=== PATIENT | female | born 1960 | race Caucasian/White ===

== ENCOUNTER 2018-08-23 03:21 | Emergency (ER) | payer MEDICARE, MEDICAID ==
[2018-08-23] MEDS: NA BICARBONATE 8.4% 50 ML SYG IV (03:38)
[2018-08-23] MEDS: SOD CHLORIDE 0.9% 1,000 ML IV (03:38)
[2018-08-23 03:39] LABS: ADD MAN DIFF? NO
[2018-08-23 03:56] LABS: BASOPHIL # 0.1 10^3/ul (0.0-0.1); BASOPHILS % 1.6 % (0.0-2.0); EOSINOPHILS # 0.1 10^3/ul (0.0-0.5); EOSINOPHILS % 1.8 % (0.0-7.0); HEMOGLOBIN 14.3 g/dl (12.0-16.0); LYMPHOCYTES # 1.1 10^3/ul (0.8-2.9); LYMPHOCYTES % 22.8 % (15.0-51.0); MEAN CORPUSCULAR HEMOGLOBIN 27.2 pg (29.0-33.0); MEAN CORPUSCULAR HGB CONC 31.1 g/dl (32.0-37.0); MEAN CORPUSCULAR VOLUME 87.5 fl (82.0-101.0); MEAN PLATELET VOLUME 10.1 fl (7.4-10.4); MONOCYTE # 0.3 10^3/ul (0.3-0.9); MONOCYTES % 6.1 % (0.0-11.0); NEUTROPHIL # 3.3 10^3/ul (1.6-7.5); NEUTROPHILS % 67.1 % (39.0-77.0); PLATELET COUNT 246 10^3/UL (140-415); RED BLOOD COUNT 5.26 10^6/ul (4.20-5.40); RED CELL DISTRIBUTION WIDTH 15.9 % (11.5-14.5)
[2018-08-23 04:02] LABS: ALANINE AMINOTRANSFERASE 15 IU/L (13-69); ALBUMIN 4.9 g/dl (3.3-4.9); ALBUMIN/GLOBULIN RATIO 1.22; ALKALINE PHOSPHATASE 89 IU/L (42-121); ANION GAP 14 (5-13); ASPARTATE AMINO TRANSFERASE 33 IU/L (15-46); BILIRUBIN,INDIRECT 0.3 mg/dl (0-1.1); BILIRUBIN,TOTAL 0.3 mg/dl (0.2-1.3); BLOOD UREA NITROGEN 13 mg/dl (7-20); CALCIUM 10.8 mg/dl (8.4-10.2); CARBON DIOXIDE 22 mmol/L (21-31); CHLORIDE 106 mmol/L (97-110); CREATININE 1.08 mg/dl (0.44-1.00); Estimated GFR 52 mL/min (>60); GLUCOSE 133 mg/dl (70-220); POTASSIUM 3.8 mmol/L (3.5-5.1); SODIUM 142 mmol/L (135-144); TOTAL PROTEIN 8.9 g/dl (6.1-8.1)
[2018-08-23 04:03] LABS: ACETAMINOPHEN < 10.0 ug/ml (10.0-30.0); ETHANOL < 10.0 mg/dl (0-0); SALICYLATE < 1.0 mg/dl (5.0-30.0)
[2018-08-23 04:19] LABS: ADD UMIC YES; UR ASCORBIC ACID NEGATIVE (NEGATIVE); UR BACTERIA MANY /HPF (NONE SEEN); UR BILIRUBIN (Dip) NEGATIVE (NEGATIVE); UR BLOOD (Dip) NEGATIVE (NEGATIVE); UR CLARITY CLOUDY (CLEAR); UR COLOR AMBER (YELLOW); UR GLUCOSE (Dip) NEGATIVE (NEGATIVE); UR KETONES (Dip) NEGATIVE (NEGATIVE); UR LEUKOCYTE ESTERASE (Dip) 2+ Leu/ul (NEGATIVE); UR MUCUS MANY /HPF (NONE SEEN); UR NITRITE (Dip) POSITIVE (NEGATIVE); UR RBC 2 /HPF (0-5); UR SPECIFIC GRAVITY (Dip) 1.027 (1.003-1.030); UR TOTAL PROTEIN (Dip) 2+ mg/dl (NEGATIVE); UR UROBILINOGEN (Dip) NEGATIVE (NEGATIVE); UR WBC 91 /HPF (0-5)
[2018-08-23 04:26] LABS: AMPHETAMINE/METHAMPHETAMINE Negative (NEGATIVE); BARBITURATES Negative (NEGATIVE)
[2018-08-23 05:01] LABS: BENZODIAZEPINES POSITIVE (NEGATIVE); CANNABINOIDS NEGATIVE (NEGATIVE); COCAINE NEGATIVE (NEGATIVE); OPIATES NEGATIVE (NEGATIVE)
== END 2018-08-23 11:39 | disposition home or self-care (01) ==
LOC: E/R 03:21
DX: T45.0X1A Poisoning by antiallergic and antiemetic drugs, accidental (unintentional), initial encounter (principal); I10 Essential (primary) hypertension
CPT/HCPCS: 36415; 80053; 80307; 81001; 85025; 93005; 99284-25

== ENCOUNTER 2018-10-13 05:56 | Observation (INO) | payer MEDICARE, OTHER, MEDICAID ==
[2018-10-13] MEDS: DICYCLOMINE 20 MG INJ IM ×2 (07:30→08:00)
[2018-10-13 08:38] LABS: ADD MAN DIFF? NO
[2018-10-13 08:54] LABS: BASOPHIL # 0.1 10^3/ul (0.0-0.1); BASOPHILS % 0.8 % (0.0-2.0); EOSINOPHILS # 0.1 10^3/ul (0.0-0.5); EOSINOPHILS % 1.1 % (0.0-7.0); HEMATOCRIT 43.4 % (37.0-47.0); LYMPHOCYTES # 1.1 10^3/ul (0.8-2.9); LYMPHOCYTES % 14.8 % (15.0-51.0); MEAN CORPUSCULAR HEMOGLOBIN 27.2 pg (29.0-33.0); MEAN CORPUSCULAR VOLUME 90.8 fl (82.0-101.0); MEAN PLATELET VOLUME 8.8 fl (7.4-10.4); MONOCYTE # 0.5 10^3/ul (0.3-0.9); MONOCYTES % 6.4 % (0.0-11.0); NEUTROPHIL # 5.6 10^3/ul (1.6-7.5); NEUTROPHILS % 76.4 % (39.0-77.0); PLATELET COUNT 197 10^3/UL (140-415); RED BLOOD COUNT 4.78 10^6/ul (4.20-5.40); RED CELL DISTRIBUTION WIDTH 16.8 % (11.5-14.5)
[2018-10-13 08:54] LABS: WHITE BLOOD COUNT 7.4 10^3/ul (4.8-10.8)
[2018-10-13 09:14] LABS: ALANINE AMINOTRANSFERASE 19 IU/L (13-69); ALBUMIN 3.8 g/dl (3.3-4.9); ALBUMIN/GLOBULIN RATIO 1.08; ALKALINE PHOSPHATASE 56 IU/L (42-121); ANION GAP 9 (5-13); ASPARTATE AMINO TRANSFERASE 36 IU/L (15-46); BILIRUBIN,INDIRECT 0.8 mg/dl (0-1.1); BILIRUBIN,TOTAL 0.8 mg/dl (0.2-1.3); BLOOD UREA NITROGEN 11 mg/dl (7-20); CALCIUM 9.7 mg/dl (8.4-10.2); CARBON DIOXIDE 29 mmol/L (21-31); CHLORIDE 108 mmol/L (97-110); CREATININE 0.82 mg/dl (0.44-1.00); Estimated GFR > 60 mL/min (>60); GLUCOSE 106 mg/dl (70-220); LIPASE 38 U/L (23-300); POTASSIUM 3.8 mmol/L (3.5-5.1); SODIUM 146 mmol/L (135-144); TOTAL PROTEIN 7.3 g/dl (6.1-8.1)
[2018-10-13] MEDS ORDERED: ACETAMINOPHEN 325 MG TAB PO ×2 (10:00→14:30)
[2018-10-13] MEDS: LORAZEPAM 2 MG INJ IV (10:55)
[2018-10-13] MEDS: morphine 4 MG/ML VIAL IV (11:53)
[2018-10-13] MEDS: ONDANSETRON 4 MG INJ IV (11:54)
[2018-10-13] MEDS ORDERED: ALBUTEROL/IPRATROPIUM (NEB) 3 ML AMP HHN (14:30)
[2018-10-13] MEDS ORDERED: ONDANSETRON 4 MG INJ IV (14:30)
[2018-10-13] MEDS ORDERED: NON-FORMULARY/PATIENT OWN MED (Fexofenadine Hcl* (Allegra*) 180 MG) PO (14:30)
[2018-10-13] MEDS ORDERED: NACL 0.9% 3 ML SYG IV (14:30)
[2018-10-13] MEDS ORDERED: DOCUSATE SODIUM 100 MG CAP PO (14:30)
[2018-10-13] MEDS: morphine 2 MG INJ IV ×2 (15:00→20:30)
[2018-10-13] MEDS: DIAZEPAM 5 MG TAB PO ×2 (15:18→22:34)
[2018-10-13] MEDS ORDERED: BISACODYL (EC) 5 MG TAB PO (16:00)
[2018-10-13] MEDS: POTASSIUM CHLORIDE 30 MEQ in SOD CHLORIDE 0.45% 1,000 ML IV ×2 (16:00→22:29)
[2018-10-13] MEDS: ZOLPIDEM 5 MG TAB PO (20:30)
[2018-10-13] MEDS: DOCUSATE SODIUM 100 MG CAP PO (20:31)
[2018-10-13] MEDS: SENNA TAB PO (20:31)
[2018-10-13] MEDS: traZODone 100 MG TAB PO (20:32)
[2018-10-13] MEDS ORDERED: PATIENT'S OWN MEDICATION PO (21:00)
[2018-10-14] MEDS: morphine 2 MG INJ IV ×5 (01:56→20:03)
[2018-10-14] MEDS: hydrALAzine 20 MG INJ IV ×2 (01:56→08:21)
[2018-10-14] MEDS: POTASSIUM CHLORIDE 30 MEQ in SOD CHLORIDE 0.45% 1,000 ML IV ×2 (04:42→17:24)
[2018-10-14 06:02] LABS: ADD MAN DIFF? NO
[2018-10-14 06:05] LABS: WHITE BLOOD COUNT 5.9 10^3/ul (4.8-10.8)
[2018-10-14 06:05] LABS: BASOPHIL # 0.1 10^3/ul (0.0-0.1); BASOPHILS % 1.4 % (0.0-2.0); EOSINOPHILS # 0.2 10^3/ul (0.0-0.5); EOSINOPHILS % 2.5 % (0.0-7.0); HEMATOCRIT 38.7 % (37.0-47.0); HEMOGLOBIN 11.6 g/dl (12.0-16.0); LYMPHOCYTES # 1.6 10^3/ul (0.8-2.9); LYMPHOCYTES % 26.6 % (15.0-51.0); MEAN CORPUSCULAR HEMOGLOBIN 27.8 pg (29.0-33.0); MEAN CORPUSCULAR VOLUME 92.6 fl (82.0-101.0); MEAN PLATELET VOLUME 8.8 fl (7.4-10.4); MONOCYTE # 0.5 10^3/ul (0.3-0.9); MONOCYTES % 8.1 % (0.0-11.0); NEUTROPHIL # 3.6 10^3/ul (1.6-7.5); NEUTROPHILS % 61.1 % (39.0-77.0); PLATELET COUNT 176 10^3/UL (140-415); RED BLOOD COUNT 4.18 10^6/ul (4.20-5.40)
[2018-10-14 06:43] LABS: ANION GAP 8 (5-13); BLOOD UREA NITROGEN 10 mg/dl (7-20); CARBON DIOXIDE 31 mmol/L (21-31); CHLORIDE 105 mmol/L (97-110); CREATININE 0.85 mg/dl (0.44-1.00); Estimated GFR > 60 mL/min (>60); GLUCOSE 92 mg/dl (70-220); MAGNESIUM 1.9 mg/dl (1.7-2.5); PHOSPHORUS 4.5 mg/dl (2.5-4.9); POTASSIUM 4.1 mmol/L (3.5-5.1); SODIUM 144 mmol/L (135-144)
[2018-10-14 06:59] LABS: HEMOGLOBIN A1C 4.9 % (0-5.9)
[2018-10-14] MEDS: DOCUSATE SODIUM 100 MG CAP PO ×2 (07:51→20:08)
[2018-10-14] MEDS: SENNA TAB PO ×2 (07:51→20:08)
[2018-10-14] MEDS: LORATADINE 10 MG TAB PO (08:21)
[2018-10-14] MEDS: ENOXAPARIN 40 MG/0.4 ML SYG SC (08:22)
[2018-10-14] MEDS: DIAZEPAM 5 MG TAB PO ×2 (13:02→21:07)
[2018-10-14] MEDS: NA PHOSPHATE/BIPHOS 133 ML ENEMA PR (14:15)
[2018-10-14] MEDS: IBUPROFEN 600 MG TAB PO (22:32)
[2018-10-14] MEDS: traZODone 100 MG TAB PO (22:40)
[2018-10-15] MEDS: hydrALAzine 20 MG INJ IV ×2 (03:00→09:55)
[2018-10-15] MEDS: morphine 2 MG INJ IV ×2 (03:00→07:02)
[2018-10-15] MEDS: AMLODIPINE 10 MG TAB PO (05:25)
[2018-10-15] MEDS: POTASSIUM CHLORIDE 30 MEQ in SOD CHLORIDE 0.45% 1,000 ML IV (06:06)
[2018-10-15] MEDS: DIAZEPAM 5 MG TAB PO (07:39)
[2018-10-15] MEDS: ENOXAPARIN 40 MG/0.4 ML SYG SC (08:29)
[2018-10-15] MEDS: SENNA TAB PO (08:29)
[2018-10-15] MEDS: LORATADINE 10 MG TAB PO (08:29)
[2018-10-15] MEDS: DOCUSATE SODIUM 100 MG CAP PO (08:29)
[2018-10-15] MEDS: LOPERAMIDE 2 MG CAP PO (08:50)
[2018-10-15] MEDS: HYDROCODONE/APAP (5/325) TAB PO (08:51)
[2018-10-16] MEDS ORDERED: AMLODIPINE 10 MG TAB PO (09:00)
== END 2018-10-15 13:30 | disposition home or self-care (01) ==
LOC: E/R 05:56 → 5EC 09:42
DX: E86.0 Dehydration (principal); F32.9 Major depressive disorder, single episode, unspecified; J44.9 Chronic obstructive pulmonary disease, unspecified
CPT/HCPCS: 74176; 80048; 80053; 83036; 83690; 83735; 84100; 85025; 87045; 90686; 93005; 99217; 99285-25

== ENCOUNTER → 2018-10-26 | Emergency (ER) | payer MEDICARE, OTHER | END | disposition home or self-care (01) | LOC: E/R 14:31 | DX: F41.9 Anxiety disorder, unspecified (principal) | CPT/HCPCS: 99283 ==

== ENCOUNTER 2018-10-30 10:48 | Inpatient (IN) | payer MEDICARE, OTHER ==
[2018-10-30] MEDS: LOPERAMIDE 2 MG CAP PO ×2 (11:52→17:21)
[2018-10-30 13:17] LABS: ADD MAN DIFF? NO
[2018-10-30 13:20] LABS: ABNORMAL IP MESSAGE 1; BASOPHIL # 0.1 10^3/ul (0.0-0.1); BASOPHILS % 0.7 % (0.0-2.0); EOSINOPHILS % 0.4 % (0.0-7.0); HEMATOCRIT 45.2 % (37.0-47.0); HEMOGLOBIN 13.8 g/dl (12.0-16.0); LYMPHOCYTES # 0.5 10^3/ul (0.8-2.9); MEAN CORPUSCULAR HEMOGLOBIN 26.7 pg (29.0-33.0); MEAN CORPUSCULAR HGB CONC 30.5 g/dl (32.0-37.0); MEAN CORPUSCULAR VOLUME 87.6 fl (82.0-101.0); MEAN PLATELET VOLUME 8.4 fl (7.4-10.4); MONOCYTE # 0.7 10^3/ul (0.3-0.9); MONOCYTES % 10.2 % (0.0-11.0); NEUTROPHIL # 5.6 10^3/ul (1.6-7.5); NEUTROPHILS % 81.1 % (39.0-77.0); NUCLEATED RED BLOOD CELLS% 0.4 /100WBC (0.0-0.0); PLATELET COUNT 201 10^3/UL (140-415); RED BLOOD COUNT 5.16 10^6/ul (4.20-5.40); RED CELL DISTRIBUTION WIDTH 16.1 % (11.5-14.5)
[2018-10-30 13:20] LABS: WHITE BLOOD COUNT 6.9 10^3/ul (4.8-10.8)
[2018-10-30 13:21] LABS: POSITIVE DIFF @See below
[2018-10-30 13:43] LABS: ALANINE AMINOTRANSFERASE 12 IU/L (13-69); ALBUMIN 4.1 g/dl (3.3-4.9); ALBUMIN/GLOBULIN RATIO 1.07; ALKALINE PHOSPHATASE 364 IU/L (42-121); ANION GAP 17 (5-13); ASPARTATE AMINO TRANSFERASE 25 IU/L (15-46); BILIRUBIN,INDIRECT 1.4 mg/dl (0-1.1); BILIRUBIN,TOTAL 1.5 mg/dl (0.2-1.3); BLOOD UREA NITROGEN 15 mg/dl (7-20); CALCIUM 10.5 mg/dl (8.4-10.2); CARBON DIOXIDE 21 mmol/L (21-31); CHLORIDE 101 mmol/L (97-110); CREATININE 1.33 mg/dl (0.44-1.00); Estimated GFR 41 mL/min (>60); GLUCOSE 128 mg/dl (70-220); LIPASE 32 U/L (23-300); POTASSIUM 3.7 mmol/L (3.5-5.1); SODIUM 139 mmol/L (135-144); TOTAL PROTEIN 7.9 g/dl (6.1-8.1)
[2018-10-30] MEDS ORDERED: ACETAMINOPHEN 650 MG SUPP PR (16:30)
[2018-10-30] MEDS ORDERED: ACETAMINOPHEN 325 MG TAB PO (16:30)
[2018-10-30] MEDS ORDERED: NACL 0.9% 3 ML SYG IV (16:30)
[2018-10-30] MEDS: ONDANSETRON 4 MG INJ IV (17:20)
[2018-10-30] MEDS: morphine 2 MG INJ IV ×2 (17:20→23:04)
[2018-10-30] MEDS: SOD CHLORIDE 0.9% 1,000 ML IV (17:49)
[2018-10-30] MEDS: KETOROLAC 30 MG INJ IV (17:52)
[2018-10-31] MEDS: KETOROLAC 30 MG INJ IV ×4 (00:32→18:00)
[2018-10-31] MEDS: ONDANSETRON 4 MG INJ IV ×4 (00:45→23:43)
[2018-10-31] MEDS: LORAZEPAM 2 MG INJ IV (01:50)
[2018-10-31] MEDS: SOD CHLORIDE 0.9% 1,000 ML IV ×4 (02:29→22:29)
[2018-10-31] MEDS: morphine 2 MG INJ IV ×3 (03:42→23:43)
[2018-10-31 06:01] LABS: ABNORMAL IP MESSAGE 1; HEMATOCRIT 38.5 % (37.0-47.0); MEAN CORPUSCULAR HEMOGLOBIN 27.1 pg (29.0-33.0); MEAN CORPUSCULAR HGB CONC 31.2 g/dl (32.0-37.0); MEAN CORPUSCULAR VOLUME 86.9 fl (82.0-101.0); MEAN PLATELET VOLUME 9.4 fl (7.4-10.4); NUCLEATED RED BLOOD CELLS% 0.3 /100WBC (0.0-0.0); PLATELET COUNT 133 10^3/UL (140-415); RED BLOOD COUNT 4.43 10^6/ul (4.20-5.40); RED CELL DISTRIBUTION WIDTH 16.4 % (11.5-14.5)
[2018-10-31 06:01] LABS: WHITE BLOOD COUNT 5.9 10^3/ul (4.8-10.8)
[2018-10-31 06:02] LABS: POSITIVE DIFF @See below
[2018-10-31 06:03] LABS: ADD MAN DIFF? YES
[2018-10-31 06:11] LABS: HEMOGLOBIN A1C 4.9 % (0-5.9)
[2018-10-31 06:30] LABS: ALANINE AMINOTRANSFERASE 18 IU/L (13-69); ALBUMIN 2.9 g/dl (3.3-4.9); ALBUMIN/GLOBULIN RATIO 0.96; ALKALINE PHOSPHATASE 310 IU/L (42-121); ANION GAP 12 (5-13); ASPARTATE AMINO TRANSFERASE 19 IU/L (15-46); BILIRUBIN,INDIRECT 0.7 mg/dl (0-1.1); BILIRUBIN,TOTAL 0.7 mg/dl (0.2-1.3); BLOOD UREA NITROGEN 25 mg/dl (7-20); CALCIUM 9.1 mg/dl (8.4-10.2); CARBON DIOXIDE 23 mmol/L (21-31); CHLORIDE 103 mmol/L (97-110); CREATININE 1.37 mg/dl (0.44-1.00); Estimated GFR 40 mL/min (>60); GLUCOSE 116 mg/dl (70-220); PHOSPHORUS 4.1 mg/dl (2.5-4.9); SODIUM 138 mmol/L (135-144); TOTAL PROTEIN 5.9 g/dl (6.1-8.1)
[2018-10-31 07:03] LABS: ANISOCYTOSIS 1+ (0-0); BAND NEUTROPHILS #M 1.5 10^3/ul (0.0-0.6); BAND NEUTROPHILS % (M) 26 % (0-4); BURR CELLS 1+ (0-0); EOSINOPHILS % (M) 1 % (0-7); ERYTHROBLAST% (NRBC) (M) 1 % (0-0); HYPOCHROMASIA 1+ (0-0); LYMPHOCYTES #M 0.5 10^3/ul (0.8-2.9); LYMPHOCYTES % (M) 9 % (15-51); METAMYELOCYTES #M 0.1 10^3/ul (0.0-0.0); METAMYELOCYTES %M 3 % (0-0); MICROCYTOSIS 1+ (0-0); MONOCYTE #M 0.3 10^3/ul (0.3-0.9); MONOCYTES % (M) 6 % (0-11); PLATELET ESTIMATE DECREASED; POIKILOCYTOSIS 1+ (0-0); REACTIVE LYMPHOCYTES% (M) 1 % (0-0); SEG NEUT #M 3.3 10^3/ul (1.6-7.5); SEGMENTED NEUTROPHILS (M) % 55 % (39-77); SMUDGE%M 1 % (0-0)
[2018-10-31] MEDS: ENOXAPARIN 40 MG/0.4 ML SYG SC (09:04)
[2018-10-31] MEDS: LEVOFLOXACIN 500MG/D5W (PMX) 100 ML IVPB (15:12)
[2018-10-31] MEDS: metroNIDAZOLE 500 MG/NS (PMX) 100 ML IVPB ×2 (22:00→23:43)
[2018-10-31 23:40] LABS: C-REACTIVE PROTEIN 25.4 mg/dl (0.0-0.9)
[2018-11-01 00:13] LABS: ERYTHROCYTE SEDIMENTATION RATE 15 mm/Hr (0-30)
[2018-11-01] MEDS: ONDANSETRON 4 MG INJ IV ×4 (04:18→20:45)
[2018-11-01] MEDS: morphine 2 MG INJ IV ×3 (04:20→22:31)
[2018-11-01] MEDS: metroNIDAZOLE 500 MG/NS (PMX) 100 ML IVPB ×3 (06:25→22:20)
[2018-11-01] MEDS: ENOXAPARIN 40 MG/0.4 ML SYG SC (09:08)
[2018-11-01] MEDS: SOD CHLORIDE 0.9% 1,000 ML IV ×2 (10:19→18:29)
[2018-11-01] MEDS: LEVOFLOXACIN 500MG/D5W (PMX) 100 ML IVPB (15:40)
[2018-11-01] MEDS ORDERED: clonAZEPAM 0.5 MG TAB PO (17:30)
[2018-11-01] MEDS: MAGNESIUM CITRATE 300 ML BTL PO ×2 (17:30→19:34)
[2018-11-01] MEDS: BISACODYL (EC) 5 MG TAB PO (17:34)
[2018-11-01] MEDS: METOCLOPRAMIDE 10 MG INJ IV (17:34)
[2018-11-01] MEDS: POLYETHYLENE GLYCOL 3350 119 GM POWDER PO (23:30)
[2018-11-02] MEDS: METOCLOPRAMIDE 10 MG INJ IV ×4 (00:32→18:03)
[2018-11-02] MEDS: SOD CHLORIDE 0.9% 1,000 ML IV ×3 (02:05→17:06)
[2018-11-02] MEDS: ONDANSETRON 4 MG INJ IV ×2 (04:33→09:33)
[2018-11-02] MEDS: morphine 2 MG INJ IV ×3 (04:44→22:43)
[2018-11-02] MEDS: metroNIDAZOLE 500 MG/NS (PMX) 100 ML IVPB ×3 (05:30→21:54)
[2018-11-02] MEDS: CALCIUM CARBONATE 500 MG CHEW TAB PO (05:31)
[2018-11-02] MEDS: POLYETHYLENE GLYCOL 3350 119 GM POWDER PO (06:00)
[2018-11-02] MEDS: BISACODYL (EC) 5 MG TAB PO (08:00)
[2018-11-02] MEDS: ENOXAPARIN 40 MG/0.4 ML SYG SC (09:00)
[2018-11-02 10:43] LABS: WHITE BLOOD COUNT 10.6 10^3/ul (4.8-10.8)
[2018-11-02 10:43] LABS: ABNORMAL IP MESSAGE 1; HEMOGLOBIN 11.6 g/dl (12.0-16.0); MEAN CORPUSCULAR HEMOGLOBIN 26.8 pg (29.0-33.0); MEAN CORPUSCULAR VOLUME 92.4 fl (82.0-101.0); MEAN PLATELET VOLUME 9.2 fl (7.4-10.4); NUCLEATED RED BLOOD CELLS% 0.7 /100WBC (0.0-0.0); PLATELET COUNT 136 10^3/UL (140-415); RED BLOOD COUNT 4.33 10^6/ul (4.20-5.40); RED CELL DISTRIBUTION WIDTH 17.1 % (11.5-14.5)
[2018-11-02 10:44] LABS: ADD MAN DIFF? YES; POSITIVE DIFF @See below
[2018-11-02 11:02] LABS: INR 2.33; PROTIME 25.6 Sec (11.9-14.9)
[2018-11-02 11:05] LABS: ALANINE AMINOTRANSFERASE 12 IU/L (13-69); ALBUMIN 2.8 g/dl (3.3-4.9); ALBUMIN/GLOBULIN RATIO 1.03; ALKALINE PHOSPHATASE 244 IU/L (42-121); ANION GAP 23 (5-13); ASPARTATE AMINO TRANSFERASE 34 IU/L (15-46); BILIRUBIN,INDIRECT 0.2 mg/dl (0-1.1); BILIRUBIN,TOTAL 0.6 mg/dl (0.2-1.3); BLOOD UREA NITROGEN 29 mg/dl (7-20); CALCIUM 8.3 mg/dl (8.4-10.2); CHLORIDE 97 mmol/L (97-110); CREATININE 1.71 mg/dl (0.44-1.00); Estimated GFR 31 mL/min (>60); MAGNESIUM 2.3 mg/dl (1.7-2.5); PHOSPHORUS 6.1 mg/dl (2.5-4.9); POTASSIUM 4.4 mmol/L (3.5-5.1); SODIUM 129 mmol/L (135-144); TOTAL PROTEIN 5.5 g/dl (6.1-8.1)
[2018-11-02 11:36] LABS: CARBON DIOXIDE 9 mmol/L (21-31); GLUCOSE 27 mg/dl (70-220)
[2018-11-02] MEDS ORDERED: DEXTROSE 50% 50 ML SYRINGE (11:45)
[2018-11-02] MEDS: DEXTROSE 50% 50 ML SYRINGE IV ×3 (11:57→22:43)
[2018-11-02] MEDS: DEXTROSE 5%-0.45% NACL 1,000 ML IV (11:57)
[2018-11-02 12:21] LABS: AADO2 Arterial 57.8 mmHg (7.0-24.0); Arterial Base Excess -18.7 mmol/L (-3.0-3); Arterial Blood Gas Oxygen Sat 98.7 mmHG (95.0-98.0); Arterial COHb 0.3 % (0.0-3.0); Arterial Fraction of Oxyhgb 97.9 % (93.0-99.0); Arterial MetHb 0.5 % (0.0-1.5); Arterial pCO2 27.4 mmhg (35-45); MODE NASAL CANNULA; Site Right Brachial
[2018-11-02 12:56] LABS: GLUCOSE 67 mg/dl (70-220)
[2018-11-02] MEDS: NA BICARBONATE 8.4% 50 ML SYG IV (13:09)
[2018-11-02] MEDS: MAGNESIUM CITRATE 300 ML BTL PO (14:30)
[2018-11-02] MEDS: LACTULOSE 30ML CUP GTB ×4 (15:00→21:00)
[2018-11-02] MEDS: LEVOFLOXACIN 500MG/D5W (PMX) 100 ML IVPB (15:39)
[2018-11-02 16:21] LABS: LACTIC ACID 13.2 mmol/L (0.5-2.0)
[2018-11-02] MEDS: SODIUM BICARBONATE (IV ADD) 150 MEQ in DEXTROSE 5% 1,000 ML IV (16:50)
[2018-11-02] MEDS: PHYTONADIONE 10 MG in DEXTROSE 5% 50 ML IVPB (16:50)
[2018-11-02] MEDS ORDERED: SODIUM CHLORIDE 0.9% 1L BAG IV* (17:00)
[2018-11-02] MEDS: ACCU-CHEK XX ×2 (17:00→21:00)
[2018-11-02] MEDS ORDERED: LORAZEPAM 2 MG INJ IV (17:30)
[2018-11-02 19:59] LABS: ADD UMIC YES; UR ASCORBIC ACID NEGATIVE (NEGATIVE); UR BACTERIA MANY /HPF (NONE SEEN); UR BILIRUBIN (Dip) 1+ mg/dL (NEGATIVE); UR BLOOD (Dip) 1+ mg/dL (NEGATIVE); UR CLARITY SLIGHTLY CLOUDY (CLEAR); UR COLOR AMBER (YELLOW); UR GLUCOSE (Dip) NEGATIVE (NEGATIVE); UR KETONES (Dip) NEGATIVE (NEGATIVE); UR LEUKOCYTE ESTERASE (Dip) TRACE Leu/ul (NEGATIVE); UR MUCUS MANY /HPF (NONE SEEN); UR NITRITE (Dip) NEGATIVE (NEGATIVE); UR RBC 7 /HPF (0-5); UR SPECIFIC GRAVITY (Dip) 1.019 (1.003-1.030); UR TOTAL PROTEIN (Dip) 1+ mg/dl (NEGATIVE); UR UROBILINOGEN (Dip) 2+ mg/dL (NEGATIVE); UR WBC 8 /HPF (0-5)
[2018-11-02 20:12] LABS: CREATININE,URINE RANDOM 75.33 mg/dl (20-320)
[2018-11-02 20:19] LABS: SODIUM,URINE RANDOM < 13 mmol/L (30-90)
[2018-11-02 21:33] LABS: LACTIC ACID 12.5 mmol/L (0.5-2.0)
[2018-11-02] MEDS ORDERED: GLUCOSE GEL 15 GRAM TUBE BUCCAL (23:00)
[2018-11-02] MEDS ORDERED: GLUCAGON 1 MG INJ IM (23:00)
[2018-11-02] MEDS ORDERED: GLUCOSE GEL 15 GRAM TUBE PO ×2 (23:00)
[2018-11-03] MEDS: METOCLOPRAMIDE 10 MG INJ IV ×4 (00:13→17:49)
[2018-11-03] MEDS: ACCU-CHEK XX ×6 (01:00→20:58)
[2018-11-03] MEDS: SODIUM BICARBONATE (IV ADD) 150 MEQ in DEXTROSE 5% 1,000 ML IV (03:20)
[2018-11-03] MEDS: DEXTROSE 50% 50 ML SYRINGE IV (04:26)
[2018-11-03] MEDS: SODIUM BICARBONATE IV ×2 (05:40→17:47)
[2018-11-03] MEDS: DEXTROSE 10% IV ×2 (05:40→17:47)
[2018-11-03] MEDS: LEVOFLOXACIN 250 MG TAB PO (05:41)
[2018-11-03 07:24] LABS: WHITE BLOOD COUNT 9.8 10^3/ul (4.8-10.8)
[2018-11-03 07:24] LABS: ABNORMAL IP MESSAGE 1; HEMATOCRIT 38.7 % (37.0-47.0); MEAN CORPUSCULAR HGB CONC 28.4 g/dl (32.0-37.0); MEAN CORPUSCULAR VOLUME 94.9 fl (82.0-101.0); MEAN PLATELET VOLUME 9.6 fl (7.4-10.4); NUCLEATED RED BLOOD CELLS% 0.5 /100WBC (0.0-0.0); PLATELET COUNT 107 10^3/UL (140-415); RED BLOOD COUNT 4.08 10^6/ul (4.20-5.40); RED CELL DISTRIBUTION WIDTH 17.2 % (11.5-14.5)
[2018-11-03 07:35] LABS: ADD MAN DIFF? YES; POSITIVE DIFF @See below
[2018-11-03 07:45] LABS: INR 1.85; PROTIME 21.4 Sec (11.9-14.9); PT RATIO 1.7
[2018-11-03 07:49] LABS: ALANINE AMINOTRANSFERASE 17 IU/L (13-69); ALBUMIN 2.5 g/dl (3.3-4.9); ALBUMIN/GLOBULIN RATIO 0.96; ALKALINE PHOSPHATASE 179 IU/L (42-121); ANION GAP 24 (5-13); ASPARTATE AMINO TRANSFERASE 35 IU/L (15-46); BILIRUBIN,INDIRECT 0.3 mg/dl (0-1.1); BILIRUBIN,TOTAL 0.8 mg/dl (0.2-1.3); BLOOD UREA NITROGEN 29 mg/dl (7-20); CHLORIDE 94 mmol/L (97-110); CREATININE 1.93 mg/dl (0.44-1.00); Estimated GFR 27 mL/min (>60); GLUCOSE 94 mg/dl (70-220); POTASSIUM 4.2 mmol/L (3.5-5.1); SODIUM 126 mmol/L (135-144); TOTAL PROTEIN 5.1 g/dl (6.1-8.1)
[2018-11-03 07:58] LABS: CARBON DIOXIDE 8 mmol/L (21-31)
[2018-11-03 08:18] LABS: LACTIC ACID 14.5 mmol/L (0.5-2.0)
[2018-11-03] MEDS: POLYETHYLENE GLYCOL 3350 119 GM POWDER PO (08:48)
[2018-11-03 08:55] LABS: PHOSPHORUS 4.9 mg/dl (2.5-4.9)
[2018-11-03 08:55] LABS: MAGNESIUM 2.2 mg/dl (1.7-2.5)
[2018-11-03] MEDS: metroNIDAZOLE 500 MG TAB PO ×3 (09:00→20:11)
[2018-11-03] MEDS: SOD CHLORIDE 0.9% 1,000 ML IV (09:10)
[2018-11-03] MEDS: ENOXAPARIN 40 MG/0.4 ML SYG SC (09:17)
[2018-11-03 09:57] LABS: BAND NEUTROPHILS #M 1.9 10^3/ul (0.0-0.6); BAND NEUTROPHILS % (M) 20 % (0-4); BURR CELLS 2+ (0-0); ERYTHROBLAST% (NRBC) (M) 6 % (0-0); LYMPHOCYTES #M 1.4 10^3/ul (0.8-2.9); LYMPHOCYTES % (M) 15 % (15-51); MONOCYTE #M 0.3 10^3/ul (0.3-0.9); MONOCYTES % (M) 4 % (0-11); PLATELET ESTIMATE DECREASED; POIKILOCYTOSIS 1+ (0-0); POLYCHROMASIA 1+ (0-0); SEG NEUT #M 6.2 10^3/ul (1.6-7.5); SEGMENTED NEUTROPHILS (M) % 61 % (39-77); SMUDGE%M 11 % (0-0)
[2018-11-03 10:14] LABS: AADO2 Arterial 14.3 mmHg (7.0-24.0); Arterial Base Excess -18.2 mmol/L (-3.0-3); Arterial Blood Gas Oxygen Sat 96.2 mmHG (95.0-98.0); Arterial COHb 0.3 % (0.0-3.0); Arterial Fraction of Oxyhgb 95.4 % (93.0-99.0); Arterial HCO3 9.6 mmol/L (22.0-26.0); Arterial MetHb 0.5 % (0.0-1.5); Arterial pCO2 29.4 mmhg (35-45); MODE ROOM AIR; Site Right Brachial
[2018-11-03] MEDS ORDERED: NA BICARBONATE 8.4% 50 ML SYG (10:44)
[2018-11-03] MEDS: NA BICARBONATE 8.4% 50 ML SYG IV (10:51)
[2018-11-03 15:45] LABS: ANION GAP 21 (5-13); BLOOD UREA NITROGEN 29 mg/dl (7-20); CALCIUM 8.1 mg/dl (8.4-10.2); CARBON DIOXIDE 11 mmol/L (21-31); CHLORIDE 94 mmol/L (97-110); CREATININE 1.84 mg/dl (0.44-1.00); Estimated GFR 28 mL/min (>60); GLUCOSE 96 mg/dl (70-220); POTASSIUM 4.2 mmol/L (3.5-5.1); SODIUM 126 mmol/L (135-144)
[2018-11-03 15:47] LABS: AMMONIA < 9 umol/l (9-30)
[2018-11-03 16:01] LABS: LACTIC ACID 14.9 mmol/L (0.5-2.0)
[2018-11-03] MEDS: SODIUM CHLORIDE 0.9% 1L BAG IV* (17:07)
[2018-11-03 17:57] LABS: HEPATITIS B SURFACE ANTIGEN NEGATIVE (NEGATIVE)
[2018-11-03 18:14] LABS: HEPATITIS B CORE ANTIBODY REACTIVE (NEGATIVE); HEPATITIS C VIRAL ANTIBODY NEGATIVE (NEGATIVE)
[2018-11-03 18:15] LABS: HEPATITIS B SURFACE ANTIBODY POSITIVE (NEGATIVE)
[2018-11-03 18:19] LABS: ANION GAP 21 (5-13); BLOOD UREA NITROGEN 28 mg/dl (7-20); CARBON DIOXIDE 10 mmol/L (21-31); CHLORIDE 96 mmol/L (97-110); CREATININE 1.91 mg/dl (0.44-1.00); Estimated GFR 27 mL/min (>60); GLUCOSE 88 mg/dl (70-220); POTASSIUM 4.2 mmol/L (3.5-5.1); SODIUM 127 mmol/L (135-144)
[2018-11-03 18:53] LABS: LACTIC ACID 14.9 mmol/L (0.5-2.0)
[2018-11-03] MEDS ORDERED: metroNIDAZOLE 500 MG TAB PO (21:00)
[2018-11-03] MEDS: DIPHENHYDRAMINE 50 MG INJ IV (22:43)
[2018-11-03 23:54] LABS: ANION GAP 21 (5-13); BLOOD UREA NITROGEN 29 mg/dl (7-20); CALCIUM 8.1 mg/dl (8.4-10.2); CHLORIDE 96 mmol/L (97-110); Estimated GFR 26 mL/min (>60); GLUCOSE 88 mg/dl (70-220); POTASSIUM 4.3 mmol/L (3.5-5.1); SODIUM 126 mmol/L (135-144)
[2018-11-03 23:56] LABS: CARBON DIOXIDE 9 mmol/L (21-31)
[2018-11-04] MEDS: METOCLOPRAMIDE 10 MG INJ IV ×5 (00:05→23:30)
[2018-11-04] MEDS: ACCU-CHEK XX ×6 (00:56→20:37)
[2018-11-04] MEDS: LORAZEPAM 2 MG INJ IV ×3 (02:45→11:22)
[2018-11-04] MEDS: DEXTROSE 50% 50 ML SYRINGE IV ×2 (03:25→12:19)
[2018-11-04 05:16] LABS: ABNORMAL IP MESSAGE 1; HEMATOCRIT 36.8 % (37.0-47.0); HEMOGLOBIN 10.8 g/dl (12.0-16.0); MEAN CORPUSCULAR HEMOGLOBIN 27.3 pg (29.0-33.0); MEAN CORPUSCULAR HGB CONC 29.3 g/dl (32.0-37.0); MEAN CORPUSCULAR VOLUME 92.9 fl (82.0-101.0); MEAN PLATELET VOLUME 10.1 fl (7.4-10.4); NUCLEATED RED BLOOD CELLS% 0.3 /100WBC (0.0-0.0); PLATELET COUNT 71 10^3/UL (140-415); RED BLOOD COUNT 3.96 10^6/ul (4.20-5.40); RED CELL DISTRIBUTION WIDTH 17.2 % (11.5-14.5)
[2018-11-04 05:16] LABS: WHITE BLOOD COUNT 6.1 10^3/ul (4.8-10.8)
[2018-11-04 05:17] LABS: ADD MAN DIFF? YES; POSITIVE DIFF @See below
[2018-11-04] MEDS: SODIUM BICARBONATE IV ×3 (05:19→15:20)
[2018-11-04] MEDS: DEXTROSE 10% IV ×3 (05:19→15:20)
[2018-11-04] MEDS: LEVOFLOXACIN 250 MG TAB PO (05:19)
[2018-11-04 05:37] LABS: INR 1.24; PROTIME 15.7 Sec (11.9-14.9); PT RATIO 1.2
[2018-11-04 05:38] LABS: PARTIAL THROMBOPLASTIN TIME 33.1 Sec (23.0-35.0)
[2018-11-04 05:47] LABS: ANION GAP 25 (5-13); BLOOD UREA NITROGEN 28 mg/dl (7-20); CALCIUM 7.5 mg/dl (8.4-10.2); CARBON DIOXIDE 11 mmol/L (21-31); CHLORIDE 93 mmol/L (97-110); CREATININE 2.04 mg/dl (0.44-1.00); Estimated GFR 25 mL/min (>60); GLUCOSE 79 mg/dl (70-220); MAGNESIUM 2.1 mg/dl (1.7-2.5); PHOSPHORUS 3.6 mg/dl (2.5-4.9); SODIUM 129 mmol/L (135-144)
[2018-11-04 07:46] LABS: BAND NEUTROPHILS #M 0.1 10^3/ul (0.0-0.6); BAND NEUTROPHILS % (M) 2 % (0-4); GIANT THROMBO% (M) 1 % (0-0); LYMPHOCYTES #M 0.7 10^3/ul (0.8-2.9); LYMPHOCYTES % (M) 12 % (15-51); METAMYELOCYTES #M 0.1 10^3/ul (0.0-0.0); METAMYELOCYTES %M 2 % (0-0); MONOCYTE #M 0.4 10^3/ul (0.3-0.9); MONOCYTES % (M) 8 % (0-11); PLATELET ESTIMATE DECREASED; SEG NEUT #M 4.6 10^3/ul (1.6-7.5); SEGMENTED NEUTROPHILS (M) % 76 % (39-77); SMUDGE%M 17 % (0-0)
[2018-11-04] MEDS: metroNIDAZOLE 500 MG TAB PO ×3 (08:41→20:37)
[2018-11-04] MEDS: ENOXAPARIN 40 MG/0.4 ML SYG SC (08:42)
[2018-11-04] MEDS: NYSTATIN 30 GM POWDER BTL TOP ×2 (08:51→21:10)
[2018-11-04 09:11] LABS: LACTIC ACID 16.3 mmol/L (0.5-2.0)
[2018-11-04] MEDS ORDERED: LORAZEPAM 2 MG INJ IV (12:30)
[2018-11-04] MEDS: PROPOFOL 20 ML (13:20)
[2018-11-04] MEDS: PHENYLephrine (100 MCG/ML) 10ML SYG (13:20)
[2018-11-04 15:11] LABS: CREATININE, RANDOM URINE 73 mg/dL (20-275); MICROALBUMIN 2.4 mg/dL; MICROALBUMIN/CREATININE RATIO 33 (<30)
[2018-11-04] MEDS: ALBUMIN HUMAN 25% 100 ML IV (18:38)
[2018-11-04] MEDS: NA PHOSPHATE/BIPHOS 133 ML ENEMA PR (21:25)
[2018-11-05] MEDS: DEXTROSE 10% IV ×3 (00:29→17:24)
[2018-11-05] MEDS: SODIUM BICARBONATE IV ×3 (00:29→17:24)
[2018-11-05] MEDS: DEXTROSE 50% 50 ML SYRINGE IV ×6 (00:39→23:29)
[2018-11-05] MEDS: ACCU-CHEK XX ×6 (00:39→20:19)
[2018-11-05] MEDS: ALBUMIN HUMAN 25% 100 ML IV ×2 (02:23→11:25)
[2018-11-05] MEDS: LEVOFLOXACIN 250 MG TAB PO (05:29)
[2018-11-05 05:32] LABS: WHITE BLOOD COUNT 2.5 10^3/ul (4.8-10.8)
[2018-11-05 05:32] LABS: ABNORMAL IP MESSAGE 1; HEMATOCRIT 31.7 % (37.0-47.0); HEMOGLOBIN 8.7 g/dl (12.0-16.0); MEAN CORPUSCULAR HEMOGLOBIN 26.1 pg (29.0-33.0); MEAN CORPUSCULAR HGB CONC 27.4 g/dl (32.0-37.0); MEAN CORPUSCULAR VOLUME 95.2 fl (82.0-101.0); MEAN PLATELET VOLUME 9.9 fl (7.4-10.4); PLATELET COUNT 37 10^3/UL (140-415); RED BLOOD COUNT 3.33 10^6/ul (4.20-5.40); RED CELL DISTRIBUTION WIDTH 17.5 % (11.5-14.5)
[2018-11-05] MEDS: METOCLOPRAMIDE 10 MG INJ IV ×4 (05:32→23:02)
[2018-11-05 05:55] LABS: ANION GAP 31 (5-13); BLOOD UREA NITROGEN 32 mg/dl (7-20); CALCIUM 7.4 mg/dl (8.4-10.2); CARBON DIOXIDE 12 mmol/L (21-31); CHLORIDE 89 mmol/L (97-110); GLUCOSE 56 mg/dl (70-220); MAGNESIUM 2.1 mg/dl (1.7-2.5); PHOSPHORUS 5.1 mg/dl (2.5-4.9); POTASSIUM 4.3 mmol/L (3.5-5.1); SODIUM 132 mmol/L (135-144)
[2018-11-05 05:56] LABS: ALANINE AMINOTRANSFERASE 20 IU/L (13-69); ALBUMIN 2.7 g/dl (3.3-4.9); ALKALINE PHOSPHATASE 85 IU/L (42-121); ASPARTATE AMINO TRANSFERASE 36 IU/L (15-46); BILIRUBIN,INDIRECT 0.3 mg/dl (0-1.1); BILIRUBIN,TOTAL 1.1 mg/dl (0.2-1.3); TOTAL PROTEIN 4.6 g/dl (6.1-8.1)
[2018-11-05 06:01] LABS: Estimated GFR 27 mL/min (>60)
[2018-11-05 06:07] LABS: LACTIC ACID 21.4 mmol/L (0.5-2.0)
[2018-11-05 06:07] LABS: CREATININE 1.89 mg/dl (0.44-1.00)
[2018-11-05 06:15] LABS: ADD MAN DIFF? YES; POSITIVE DIFF @See below
[2018-11-05] MEDS: PANTOPRAZOLE 40 MG INJ IV ×2 (06:25→18:30)
[2018-11-05] MEDS: PIPER-TAZO 2.25 GM (PMX) 50 ML IVPB ×3 (06:26→21:11)
[2018-11-05 07:18] LABS: INR 1.44; PROTIME 17.6 Sec (11.9-14.9); PT RATIO 1.4
[2018-11-05 07:19] LABS: PARTIAL THROMBOPLASTIN TIME 37.4 Sec (23.0-35.0)
[2018-11-05 07:44] LABS: ANISOCYTOSIS 1+ (0-0); BAND NEUTROPHILS #M 0.1 10^3/ul (0.0-0.6); BAND NEUTROPHILS % (M) 7 % (0-4); EOSINOPHILS % (M) 2 % (0-7); GIANT THROMBO% (M) 1 % (0-0); HYPOCHROMASIA 1+ (0-0); LYMPHOCYTES #M 0.7 10^3/ul (0.8-2.9); LYMPHOCYTES % (M) 31 % (15-51); METAMYELOCYTES %M 3 % (0-0); MONOCYTE #M 0.1 10^3/ul (0.3-0.9); MONOCYTES % (M) 5 % (0-11); MYELOCYTES % (M) 1 % (0-0); OVALOCYTES 1+ (0-0); PLATELET ESTIMATE DECREASED; POIKILOCYTOSIS 1+ (0-0); REACTIVE LYMPHOCYTES% (M) 1 % (0-0); SEG NEUT #M 1.3 10^3/ul (1.6-7.5); SEGMENTED NEUTROPHILS (M) % 50 % (39-77); SMUDGE%M 13 % (0-0)
[2018-11-05] MEDS: SOD CHLORIDE 0.9% 1,000 ML IV (08:29)
[2018-11-05] MEDS: SUCRALFATE 1 GM TAB PO ×4 (09:00→20:12)
[2018-11-05] MEDS ORDERED: VANCOMYCIN IV PER PHARMACY XX (09:30)
[2018-11-05] MEDS: LIDOCAINE 1% (MPF) 5 ML VIAL SC (09:30)
[2018-11-05] MEDS: HYDROCORTISONE 100 MG INJ IV (10:07)
[2018-11-05] MEDS: ENOXAPARIN 40 MG/0.4 ML SYG SC (10:07)
[2018-11-05] MEDS: NA PHOSPHATE/BIPHOS 133 ML ENEMA PR ×2 (10:07→20:19)
[2018-11-05] MEDS: NYSTATIN 30 GM POWDER BTL TOP ×2 (10:09→20:19)
[2018-11-05 10:25] LABS: AADO2 Arterial 54.5 mmHg (7.0-24.0); Allen Test ACCEPTAB; Arterial Base Excess -11.9 mmol/L (-3.0-3); Arterial COHb 0.3 % (0.0-3.0); Arterial Fraction of Oxyhgb 94.4 % (93.0-99.0); Arterial HCO3 15.4 mmol/L (22.0-26.0); Arterial MetHb 0.3 % (0.0-1.5); Arterial pCO2 40.5 mmhg (35-45); MODE NASAL CANNULA; Site Right Radial
[2018-11-05] MEDS: NA BICARBONATE 8.4% 50 ML SYG IV ×3 (11:00→21:00)
[2018-11-05 11:37] LABS: PLATELET COUNT 25 10^3/UL (140-415)
[2018-11-05 11:52] LABS: LIPASE 889 U/L (23-300)
[2018-11-05 11:52] LABS: AMYLASE 153 U/L (11-123)
[2018-11-05 11:54] LABS: INR 1.37; PT RATIO 1.3
[2018-11-05 11:55] LABS: PARTIAL THROMBOPLASTIN TIME 32.6 Sec (23.0-35.0)
[2018-11-05 11:57] LABS: D-DIMER 1653.13 ng/ml (<460)
[2018-11-05 12:01] LABS: THROMBIN TIME 16.7 SEC (13.8-19.1)
[2018-11-05 12:08] LABS: FIBRIN SPLIT PRODUCT <10 ug/ml (<10)
[2018-11-05 15:31] LABS: AADO2 Arterial 61.3 mmHg (7.0-24.0); Allen Test ACCEPTAB; Arterial Base Excess -12.1 mmol/L (-3.0-3); Arterial Blood Gas Oxygen Sat 96.1 mmHG (95.0-98.0); Arterial COHb 0.3 % (0.0-3.0); Arterial Fraction of Oxyhgb 95.6 % (93.0-99.0); Arterial HCO3 15.8 mmol/L (22.0-26.0); Arterial MetHb 0.2 % (0.0-1.5); Blood Gas IEPAP 20/8; Blood Gas PS 12; MODE MASK - BIPAP; Site Right Radial
[2018-11-05] MEDS: VANCOMYCIN HCL 2 GM in SOD CHLORIDE 0.9% 500 ML IVPB (15:55)
[2018-11-05] MEDS ORDERED: MIDAZOLAM (DRIP) 50 mg/50 mL 50 ML IV (19:30)
[2018-11-05] MEDS ORDERED: FENTAnyl (DRIP) 1000 mcg/100mL 100 ML IV (19:30)
[2018-11-05 20:25] LABS: AADO2 Arterial 117.9 mmHg (7.0-24.0); Allen Test ACCEPTAB; Arterial Base Excess -10.5 mmol/L (-3.0-3); Arterial Blood Gas Oxygen Sat 98.7 mmHG (95.0-98.0); Arterial COHb 0.3 % (0.0-3.0); Arterial Fraction of Oxyhgb 98.1 % (93.0-99.0); Arterial MetHb 0.3 % (0.0-1.5); Arterial pCO2 37.4 mmhg (35-45); MODE VENT - AC; Site Right Radial
[2018-11-05] MEDS ORDERED: NA BICARBONATE 8.4% 50 ML SYG IV (21:00)
[2018-11-06] MEDS: ACCU-CHEK XX ×11 (00:28→22:00)
[2018-11-06] MEDS: DEXTROSE 10% IV ×3 (02:07→23:29)
[2018-11-06] MEDS: SODIUM BICARBONATE IV ×3 (02:07→23:29)
[2018-11-06] MEDS: NORepinephrine 8MG/250 ML (PMX 250 ML IV ×2 (04:29→09:42)
[2018-11-06] MEDS: DEXTROSE 50% 50 ML SYRINGE IV ×7 (04:39→19:58)
[2018-11-06] MEDS: PANTOPRAZOLE 40 MG INJ IV ×2 (04:59→18:16)
[2018-11-06] MEDS: METOCLOPRAMIDE 10 MG INJ IV ×2 (04:59→12:00)
[2018-11-06] MEDS: PIPER-TAZO 2.25 GM (PMX) 50 ML IVPB ×3 (05:00→22:07)
[2018-11-06 05:12] LABS: ADD MAN DIFF? NO
[2018-11-06 05:20] LABS: WHITE BLOOD COUNT 2.3 10^3/ul (4.8-10.8)
[2018-11-06 05:20] LABS: ABNORMAL IP MESSAGE 1; HEMATOCRIT 27.7 % (37.0-47.0); HEMOGLOBIN 8.1 g/dl (12.0-16.0); MEAN CORPUSCULAR HEMOGLOBIN 26.8 pg (29.0-33.0); MEAN CORPUSCULAR HGB CONC 29.2 g/dl (32.0-37.0); MEAN CORPUSCULAR VOLUME 91.7 fl (82.0-101.0); MEAN PLATELET VOLUME 9.4 fl (7.4-10.4); RED BLOOD COUNT 3.02 10^6/ul (4.20-5.40); RED CELL DISTRIBUTION WIDTH 17.6 % (11.5-14.5)
[2018-11-06 05:42] LABS: ALANINE AMINOTRANSFERASE 30 IU/L (13-69); ALBUMIN 2.3 g/dl (3.3-4.9); ALBUMIN/GLOBULIN RATIO 1.43; ALKALINE PHOSPHATASE 62 IU/L (42-121); AMYLASE 102 U/L (11-123); ANION GAP 37 (5-13); ASPARTATE AMINO TRANSFERASE 61 IU/L (15-46); BILIRUBIN,INDIRECT 0.5 mg/dl (0-1.1); BILIRUBIN,TOTAL 2.1 mg/dl (0.2-1.3); BLOOD UREA NITROGEN 33 mg/dl (7-20); CALCIUM 6.5 mg/dl (8.4-10.2); CARBON DIOXIDE 14 mmol/L (21-31); CHLORIDE 87 mmol/L (97-110); GLUCOSE 99 mg/dl (70-220); LIPASE 898 U/L (23-300); POTASSIUM 3.7 mmol/L (3.5-5.1); SODIUM 138 mmol/L (135-144); TOTAL PROTEIN 3.9 g/dl (6.1-8.1)
[2018-11-06 05:44] LABS: POSITIVE DIFF @See below
[2018-11-06 05:46] LABS: PLATELET COUNT 20 10^3/UL (140-415)
[2018-11-06 05:49] LABS: Estimated GFR 24 mL/min (>60)
[2018-11-06 05:50] LABS: PHOSPHORUS 10.4 mg/dl (2.5-4.9)
[2018-11-06 05:58] LABS: CREATININE 2.15 mg/dl (0.44-1.00)
[2018-11-06 06:19] LABS: LACTIC ACID > 24.0 mmol/L (0.5-2.0)
[2018-11-06] MEDS ORDERED: DEXTROSE 5%-LR 1,000 ML IV ×2 (07:30→08:30)
[2018-11-06 07:37] LABS: ADD UMIC YES; UR ASCORBIC ACID 20 mg/dL (NEGATIVE); UR BACTERIA FEW /HPF (NONE SEEN); UR BILIRUBIN (Dip) NEGATIVE (NEGATIVE); UR BLOOD (Dip) 2+ mg/dL (NEGATIVE); UR CLARITY CLOUDY (CLEAR); UR COLOR AMBER (YELLOW); UR GLUCOSE (Dip) NEGATIVE (NEGATIVE); UR KETONES (Dip) TRACE mg/dL (NEGATIVE); UR LEUKOCYTE ESTERASE (Dip) 1+ Leu/ul (NEGATIVE); UR MUCUS FEW /HPF (NONE SEEN); UR NITRITE (Dip) NEGATIVE (NEGATIVE); UR RBC 113 /HPF (0-5); UR SPECIFIC GRAVITY (Dip) 1.023 (1.003-1.030); UR SQUAMOUS EPITHELIAL CELL FEW /HPF (FEW); UR TOTAL PROTEIN (Dip) 2+ mg/dl (NEGATIVE); UR UROBILINOGEN (Dip) 2+ mg/dL (NEGATIVE); UR WBC 22 /HPF (0-5)
[2018-11-06] MEDS: DEXTROSE 5%-LR 500 ML IV (08:13)
[2018-11-06 08:18] LABS: ANISOCYTOSIS 1+ (0-0); BAND NEUTROPHILS #M 0.8 10^3/ul (0.0-0.6); BAND NEUTROPHILS % (M) 38 % (0-4); EOSINOPHILS % (M) 1 % (0-7); ERYTHROBLAST% (NRBC) (M) 1 % (0-0); HYPOCHROMASIA 2+ (0-0); LYMPHOCYTES #M 0.1 10^3/ul (0.8-2.9); LYMPHOCYTES % (M) 8 % (15-51); METAMYELOCYTES %M 2 % (0-0); MONOCYTES % (M) 2 % (0-11); PLATELET ESTIMATE SIG DECREASED; SEG NEUT #M 1.1 10^3/ul (1.6-7.5); SEGMENTED NEUTROPHILS (M) % 49 % (39-77); SMUDGE%M 11 % (0-0)
[2018-11-06] MEDS: PHENYLephrine 20MG IN 250 ML 250 ML IV (08:46)
[2018-11-06] MEDS: SUCRALFATE 1 GM TAB PO ×4 (09:00→20:00)
[2018-11-06] MEDS: NYSTATIN 30 GM POWDER BTL TOP ×2 (10:07→20:00)
[2018-11-06] MEDS ORDERED: ACCU-CHEK XX (10:30)
[2018-11-06 11:28] LABS: HIV 1&2 ANTIBODY NEGATIVE (NEGATIVE)
[2018-11-06] MEDS ORDERED: PHENYLephrine 20MG IN 250 ML 250 ML (12:10)
[2018-11-06 12:41] LABS: PROCALCITONIN 3.28 ng/mL (<0.10)
[2018-11-06] MEDS: PHENYLephrine 80 MG in DEXTROSE 5% 242 ML IV ×3 (13:44→22:36)
[2018-11-06] MEDS: NORepinephrine 32 MG in DEXTROSE 5% 218 ML IV (13:45)
[2018-11-06] MEDS: VANCOMYCIN HCL 1.25 GM in SOD CHLORIDE 0.9% 250 ML IVPB (14:33)
[2018-11-06] MEDS: ACETAMINOPHEN 1000MG/100ML IV 100 ML IVPB (16:55)
[2018-11-06] MEDS: VASOPRESSIN 60 UNIT in DEXTROSE 5% 57 ML IV (17:02)
[2018-11-07] MEDS: VASOPRESSIN 60 UNIT in DEXTROSE 5% 57 ML IV ×2 (00:38→13:11)
[2018-11-07] MEDS: ACCU-CHEK XX ×12 (02:00→22:00)
[2018-11-07] MEDS: NORepinephrine 32 MG in DEXTROSE 5% 218 ML IV ×2 (03:56→21:19)
[2018-11-07] MEDS: PHENYLephrine 80 MG in DEXTROSE 5% 242 ML IV ×5 (03:56→21:20)
[2018-11-07] MEDS: ACETAMINOPHEN 1000MG/100ML IV 100 ML IVPB ×2 (04:25→09:53)
[2018-11-07] MEDS: DEXTROSE 50% 50 ML SYRINGE IV ×9 (04:26→22:47)
[2018-11-07] MEDS: PIPER-TAZO 2.25 GM (PMX) 50 ML IVPB ×3 (05:30→21:20)
[2018-11-07] MEDS: PANTOPRAZOLE 40 MG INJ IV ×2 (05:30→18:08)
[2018-11-07 05:46] LABS: INR 3.31; PT RATIO 2.6
[2018-11-07 05:47] LABS: PARTIAL THROMBOPLASTIN TIME 53.1 Sec (23.0-35.0)
[2018-11-07 06:27] LABS: PLATELET COUNT 15 10^3/UL (140-415)
[2018-11-07 06:32] LABS: PROTIME 33.3 Sec (11.9-14.9)
[2018-11-07] MEDS: SUCRALFATE 1 GM TAB PO ×2 (09:00→13:00)
[2018-11-07] MEDS: NYSTATIN 30 GM POWDER BTL TOP ×2 (09:52→20:01)
[2018-11-07] MEDS: DEXTROSE 10% IV ×2 (11:00→23:21)
[2018-11-07] MEDS: SODIUM BICARBONATE IV ×2 (11:00→23:21)
[2018-11-07] MEDS: VANCOMYCIN HCL 1.25 GM in SOD CHLORIDE 0.9% 250 ML IVPB (15:12)
[2018-11-08] MEDS: ACCU-CHEK XX ×3 (02:00→04:00)
[2018-11-08] MEDS ORDERED: DOPamine-D5W 1.6 MG/ML 250 ML (02:31)
[2018-11-08] MEDS: DEXTROSE 50% 50 ML SYRINGE IV ×2 (02:39→04:10)
[2018-11-08] MEDS: DOPamine-D5W 1.6 MG/ML 250 ML IV (04:10)
[2018-11-08 14:26] LABS: ANCA SCREEN NEGATIVE (NEGATIVE); MYELOPEROXIDASE ANTIBODY <1.0 AI; PROTEINASE-3 ANTIBODY <1.0 AI
[2018-11-09 18:26] LABS: HEPARIN INDUCED PLATELET AB NEGATIVE (NEGATIVE)
== END 2018-11-08 04:27 | disposition expired | DRG 391 ==
LOC: E/R 10:48 → 2NE 10-31 11:10 → TEL 11-02 14:55 → ICU 11-03 11:40 → TEL 11-02 21:40 → PP2 15:43
PROC: 0DJD8ZZ Inspection of Lower Intestinal Tract, Via Natural or Artificial Opening Endoscopic (ICD-10-PCS; principal; 2018-11-04 12:00)
PROC: 0DB58ZX Excision of Esophagus, Via Natural or Artificial Opening Endoscopic, Diagnostic (ICD-10-PCS; 2018-11-04 12:00)
PROC: 0DB68ZX Excision of Stomach, Via Natural or Artificial Opening Endoscopic, Diagnostic (ICD-10-PCS; 2018-11-04 12:00)
PROC: 02HV33Z Insertion of Infusion Device into Superior Vena Cava, Percutaneous Approach (ICD-10-PCS; 2018-11-04 12:00)
PROC: B548ZZA Ultrasonography of Superior Vena Cava, Guidance (ICD-10-PCS; 2018-11-04 12:00)
PROC: 0BH17EZ Insertion of Endotracheal Airway into Trachea, Via Natural or Artificial Opening (ICD-10-PCS; 2018-11-04 12:00)
PROC: 5A1945Z Respiratory Ventilation, 24-96 Consecutive Hours (ICD-10-PCS; 2018-11-04 12:00)
DX: R19.7 Diarrhea, unspecified (principal); G92 Toxic encephalopathy; K29.01 Acute gastritis with bleeding; N17.0 Acute kidney failure with tubular necrosis; J80 Acute respiratory distress syndrome; R65.21 Severe sepsis with septic shock; A41.9 Sepsis, unspecified organism; Z68.42 Body mass index [BMI] 45.0-49.9, adult; E66.2 Morbid (severe) obesity with alveolar hypoventilation; F33.9 Major depressive disorder, recurrent, unspecified; I13.0 Hypertensive heart and chronic kidney disease with heart failure and stage 1 through stage 4 chronic kidney disease, or unspecified chronic kidney disease; E87.2 Acidosis; E87.1 Hypo-osmolality and hyponatremia; D68.9 Coagulation defect, unspecified; J44.9 Chronic obstructive pulmonary disease, unspecified; G89.29 Other chronic pain; E78.5 Hyperlipidemia, unspecified; Z95.828 Presence of other vascular implants and grafts; R11.2 Nausea with vomiting, unspecified; R63.4 Abnormal weight loss; N30.80 Other cystitis without hematuria; F41.1 Generalized anxiety disorder; Z86.718 Personal history of other venous thrombosis and embolism; Z86.711 Personal history of pulmonary embolism; E16.2 Hypoglycemia, unspecified; N18.9 Chronic kidney disease, unspecified; I50.9 Heart failure, unspecified; E83.9 Disorder of mineral metabolism, unspecified; E86.0 Dehydration; K29.80 Duodenitis without bleeding; K20.9 Esophagitis, unspecified; Z79.891 Long term (current) use of opiate analgesic; I46.9 Cardiac arrest, cause unspecified; R62.7 Adult failure to thrive
CPT/HCPCS: 31500; 36569; 36600; 71045; 74018; 74176; 76705; 76775; 76937; 80048; 80053; 80076; 81001; 81003; 82043; 82140; 82150; 82533; 82803; 82947; 82962; 83036; 83605; 83690; 83735; 84100; 84145; 84155; 84300; 84443; 85025; 85049; 85362; 85378; 85384; 85610; 85651; 85670; 85730; 86021; 86022; 86140; 86674; 86703; 86704; 86706; 86708; 86803; 87040-91; 87045; 87075; 87081; 87086; 87177; 87340; 88305; 88313; 93005; 93306; 94002; 94003; 94660; 94770; 99285-25; G0378